=== PATIENT | female | born 1970 | race Two or more races ===

== ENCOUNTER 2023-02-26 23:32 | Emergency (ER) | payer OTHER ==
[~2023-02-26] VITALS: Ht 165.1 cm; Wt 96.6 kg
[2023-02-27] MEDS ORDERED: JANUMET XR 1001 EACH (00:19)
[2023-02-27] MEDS ORDERED: SYNTHROID112 MCG (00:19)
[2023-02-27] MEDS ORDERED: GLIMEPIRIDE4 M1 (00:19)
== END 2023-02-27 02:44 | disposition home or self-care (01) ==
LOC: ER 23:32
DX: S16.8XXA Other specified injury of muscle, fascia and tendon at neck level, initial encounter (principal); V43.52XA Car driver injured in collision with other type car in traffic accident, initial encounter; Y93.89 Activity, other specified; Y92.413 State road as the place of occurrence of the external cause; S39.092A Other injury of muscle, fascia and tendon of lower back, initial encounter; Z88.8 Allergy status to other drugs, medicaments and biological substances